=== PATIENT | female | born 1960 | race Caucasian/White ===

== ENCOUNTER 2020-03-06 16:06 | Outpatient (CLI) | payer MEDICARE ==
--- NOTE | 2020-03-07 10:30 | RAD ---
CERVICAL SPINE SERIES 3 VIEWS: HISTORY: Neck pain. FINDINGS: Vertebral bodies are normal in height. Severe degenerative changes are seen with marked disk narrowi ng at C4-5, C5-6, and C6-7. Degenerative facet changes are noted. No soft tissue swelling. IMPRESSION: Marked arthritic changes of the cervical spine. POS: SORIN
== END 2020-03-06 16:07 | disposition home or self-care (01) ==
LOC: BICRAD 16:06
PROVIDERS: ATTEND Family Medicine
DX: M50.30 Other cervical disc degeneration, unspecified cervical region (principal); M47.812 Spondylosis without myelopathy or radiculopathy, cervical region
CPT/HCPCS: 72040

== ENCOUNTER 2020-03-15 14:25 | Outpatient (CLI) | payer MEDICARE ==
--- NOTE | 2020-04-04 14:04 | MMO ---
Bilateral MAMMO Bilat Screen [facility]. CLINICAL HISTORY: Patient is 59 years old and is seen for screening. The patient has the following family history of breast cancer: maternal aunt; paternal aunt and paternal grandmother. The patient has no personal history of cancer. VIEWS: The views performed were: bilateral craniocaudal with tomosynthesis and bilateral mediolateral oblique with tomosynthesis. FILMS COMPARED: The present examination has been compared to a prior imaging study performed at [facility] [place] on 02/21/2019. This study has been interpreted with the assistance of computer-aided detection. MAMMOGRAM FINDINGS: There are scattered fibroglandular densities. There are no suspicious masses, suspicious calcifications, or new areas of architectural distortion. IMPRESSION: THERE IS NO MAMMOGRAPHIC EVIDENCE OF MALIGNANCY. A ROUTINE FOLLOW-UP MAMMOGRAM IN 1 YEAR IS RECOMMENDED. THE RESULTS OF THIS EXAM WERE SENT TO THE PATIENT. ACR BI-RADS Category 1 - Negative MAMMOGRAPHY NOTE: 1. A negative mammogram report should not delay a biopsy if a dominant of clinically suspicious mass is present. 2. Approximately 10% to 15% of breast cancers are not detected by mammography. 3. Adenosis and dense breasts may obscure an underlying neoplasm. Reported by: ROYER KARIMI MD Electonically Signed: [id number]
== END 2020-03-15 14:26 | disposition home or self-care (01) ==
LOC: BICMAMMO 14:25
PROVIDERS: ATTEND Family Medicine
DX: Z12.31 Encounter for screening mammogram for malignant neoplasm of breast (principal); Z80.3 Family history of malignant neoplasm of breast
CPT/HCPCS: 77063; 77067

== ENCOUNTER 2020-07-01 14:33 | Outpatient (CLI) | payer MEDICARE | END 2020-07-01 14:34 | disposition home or self-care (01) | LOC: BICMRI 14:33 | PROVIDERS: ATTEND Family Medicine | DX: R20.0 Anesthesia of skin (principal); R53.1 Weakness; I67.82 Cerebral ischemia | CPT/HCPCS: 70551 ==